=== PATIENT | male | born 1955 | race Hispanic/Latino ===

== ENCOUNTER 2018-08-16 16:59 | Emergency (ER) | payer MEDICAID, OTHER ==
[~2018-08-16] VITALS: Ht 170.2 cm; Wt 74.8 kg
--- NOTE | 2018-08-16 17:00 | NUR ---
ARRIVAL PATIENT TO ROOM 1 VIA EMS, EMS STATES THAT THE PATIENT WAS SEIZING FOR ABOUT 30 MINS PRIOR TO THEIR ARRIVAL REPORTED BY INTERMEDIATE STAFF, PATIENT SHOWED ACTIVE SEIZING UPON ARRIVAL. REPORT GIVEN TO THIS NURSE GCS OF 6, PATIENT NOT INTUBATED, PATIENT ON A NON REBREATHER AT 15L. PATIENT AIRWAY BEING BLOCKED BY TONGUE, EMS STATES THEY GAVE 7.5 VERSED IH. NO IV ACCESS AT THIS TIME.
--- NOTE | 2018-08-16 17:04 | NUR ---
INTUBATION SUCCESSFUL ATTEMPT 24 @ THE [facility]
--- NOTE | 2018-08-16 17:10 | NUR ---
STACY CALLED AND CHECKED THE STATUS OF LIFESTAR TO FLY
--- NOTE | 2018-08-16 17:15 | ER.PDOC ---
General Chief Complaint: Requesting Medical Care Stated Complaint: CP TRAVEL OUT OF US: No Time seen by MD: 17:00 Source: EMS, EMS notes reviewed, half-way records Exam Limitations: physical impairment, other History of Present Illness Initial Comments 62 y/o male patient arrives active left focal sz x1 hr, patient is a half-way patient with known sz disorder no other hx known. Timing/Duration: unsure Severity: severe Modifying Factors: improves with other Associated Symptoms: other Past Medical History Medical History: other Surgical History: other Social History Smoking: non-smoker Drug Use: none Reviewed Nursing Reviewed: Vital Signs, Abn. Noted, Nursing Assessment Review of Systems Constitutional: see HPI EENTM: see HPI Respiratory: see HPI Cardiovascular: see HPI Gastrointestinal: see HPI Genitourinary: see HPI Musculoskeletal: see HPI Skin: see HPI Psychiatric/Neurological: see HPI, seizure Hematologic/Lymphatic: see HPI Immunological/Allergic: see HPI Physical Exam General Appearance: Severe Distress, Other EENT: pharynx nml, other Neck: Non-Tender Respiratory: chest non-tender CVS: reg rate & rhythm, no murmur, no gallop, pulses nml Gastrointestinal: Normal Bowel Sounds Extremities: Normal Range of Motion, Normal Inspection Neurologic/Psychiatric: Other Skin: Normal Color Lymphatic: No Adenopathy Comments ACTIVE LEFT FOCAL SZ., PATIENT UNRESPONSIVE , GCS 6, PATIENT RSI ETOMIDATE AND ROCURONIUM INTUBATED WITH 7.5 EET. Results/Orders Results/Orders Orders - ZOEY SEYMOUR DO Xr Chest 1v (08/16/18 17:13) Ct Head Wo Contrast (08/16/18 17:15) Cbc With Auto Diff (08/16/18 17:15) Comprehensive Metabolic Panel (08/16/18 17:15) Alcohol(Ml) (08/16/18 17:15) Valproate (08/16/18 17:15) Urinalysis (08/16/18 17:15) Troponin I (08/16/18 17:15) Creatine Kinase Mb (08/16/18 17:15) Creatine Kinase (08/16/18 17:15) Magnesium (08/16/18 17:15) Dilantin (08/16/18 17:15) Lorazepam (Ativan) (08/16/18 17:59) Vital Signs Date Time Temp Pulse Resp B/P (MAP) Pulse Ox O2 Delivery O2 Flow Rate FiO2 08/16/18 17:34 99.6 129 18 225/139 (167) 98 Mechanical Ventilator 99.6 08/16/18 17:00 99.6 129 18 99.6 08/16/18 17:00 99.7 129 18 98 Mechanical Ventilator 99.7 Laboratory Tests Test 08/16/18 17:22 08/16/18 17:50 Urine Collection Type CATH Urine Color YELLOW (YELLOW) Urine Appearance CLEAR (CLEAR) Urine Bilirubin NEGATIVE MG/DL (NEGATIVE) Urine Ketones NEGATIVE (NEGATIVE) Urine Specific [place] 1.010 (1.005-1.035) Urine pH 7 (5.0-6.0) Urine Protein NEGATIVE (NEGATIVE) Urine Urobilinogen NORMAL (NEGATIVE) Urine Nitrate NEGATIVE (NEGATAIVE) Urine Leukocyte Esterase NEGATIVE (NEGATIVE) Urine Blood NEGATIVE (NEGATIVE) Urine Glucose NORMAL (NEGATIVE) White Blood Count 11.7 10^3/uL (4.5-11.0) H Red Blood Count 4.45 10^6/uL (4.50-5.90) L Hemoglobin 15.2 g/dL (13.9-16.3) Hematocrit 44.6 % (37.0-53.0) Mean Corpuscular Volume 100.2 fL (78-100) H Mean Corpuscular Hemoglobin 34.2 pg (26-34) H Mean Corpuscular Hemoglobin Concent 34.1 g/dL (33-37) Red Cell Distribution Width 13.6 % (11.5-14.5) Platelet Count 200 10^3/uL (150-400) Mean Platelet Volume 10.3 fL (7.8-11.0) Neutrophils (%) (Auto) 61.1 % (41.0-85.0) Lymphocytes (%) (Auto) 30.5 % (24.0-44.0) Monocytes (%) (Auto) 6.8 % (5.0-12.0) Neutrophils # (Auto) 7.2 10^3/uL (1.8-7.7) Lymphocytes # (Auto) 3.6 10^3/uL (1.0-4.8) Monocytes # (Auto) 0.8 10^3/uL (0.3-0.8) Absolute Immature Granulocyte (auto 0.06 10^3 u/L (0-2) Eosinophils % 0.9 % (0.0-5.0) Basophils % 0.2 % (0.0-0.2) Basophils # 0.0 10^3/uL (0.0-0.1) Eosinophil Count 0.1 10^3/uL (0.0-0.2) Percent Immature Gran (Cell Imm) 0.50 % (0.00-0.50) Consult/PCP Time Consult/PCP Called: 18:10 Consult/PCP: [facility], AIR [facility]. Departure Time of Disposition: 18:13 Disposition: 70 DISC/XFER TO ANOTH TYP [facility] Impression: Primary Impression: Status epilepticus due to complex partial seizure Additional Impressions: Seizure disorder Airway compromise Condition: Critical If Transfer, List PT Destinati: [facility] Referrals: PCP,UNKNOWN (PCP) PRIMARY CARE PROVIDER Duration or Time Spent with Pa: 40 MIN Critical Care Note Total Time (mins): 30 Comments RSI TO PROTECT AIRWAY, LABS PENDING, LEVELS DEPAKOTE AND DILANTIN PENDING. ZOEY SEYMOUR DO Aug 16, 2018 17:15
--- NOTE | 2018-08-16 17:17 | NUR ---
CT PATIENT TO CT
[2018-08-16 17:27] LABS: BILIRUBIN,URINE NEGATIVE (NEGATIVE); UROBILINOGEN,URINE NORMAL (NEGATIVE)
[2018-08-16 17:28] LABS: APPEARANCE,URINE CLEAR (CLEAR); UA COLOR YELLOW (YELLOW)
[2018-08-16 17:34] VITALS: BP 225/139
--- NOTE | 2018-08-16 17:36 | DIREP ---
PROCEDURE:CHEST 1 VIEW COMPARISON:None. INDICATIONS:ET tube placement FINDINGS: LUNGS/PLEURA:Slightly increased density in the medial left retrocardiac region. Question medial left lower lobe infiltrate or atelectasis. VASCULATURE:Normal. Unremarkable pulmonary vasculature. CARDIAC:Normal. No cardiac silhouette abnormality or cardiomegaly. MEDIASTINUM:Normal. No visible mass or adenopathy. BONES:Normal. No fracture or visible bony lesion. OTHER:Endotracheal tube appears in satisfactory position. CONCLUSION: 1. Slightly increased density in the medial left retrocardiac region. Question medial left lower lobe infiltrate or atelectasis. Dictated by: Dominick Whalen MD on 08/16/2018 at 05:35 PM
--- NOTE | 2018-08-16 17:48 | NUR ---
PROPOFOL DRIP 20MCG/KG/MIN
--- NOTE | 2018-08-16 17:50 | NUR ---
CT PATIENT BACK FROM CT.
--- NOTE | 2018-08-16 17:54 | DIREP ---
PROCEDURE:CT HEAD OR BRAIN W/O CONTRAST COMPARISON:None. INDICATIONS:sz activity TECHNIQUE:CT images were created without intravenous contrast. FINDINGS: VENTRICLES:There is mild prominence of the ventricles and cortical sulci consistent with age related involutional changes. CEREBRUM:Right frontal , right parietal, and right posterior temporal encephalomalacia consistent with the sequela of prior infarct. No acute hemorrhages or infarcts are seen. CEREBELLUM:Negative. BRAINSTEM:Negative. BASAL CISTERNS:Negative. HEMORRHAGE:No MASS LESION:No ACUTE INFARCT:No SKULL:Normal. SINUSES:Polyp or mucous retention cyst in the inferior right maxillary sinus. OTHER:None CONCLUSION: 1. Right frontal, parietal, and posterior right temporal encephalomalacia consistent with the sequela of prior infarcts. 2. No acute findings. Dictated by: Dominick Whalen MD on 08/16/2018 at 05:51 PM
--- NOTE | 2018-08-16 17:57 | NUR ---
[facility] AUTO ACCEPTED PATIENT, DOCTOR DIES ACCEPTING PHYSICIAN AND SHER OQUENDO
[2018-08-16] MEDS ORDERED: ATIVAN IV STA ×2 (17:59→18:27)
[2018-08-16 18:00] VITALS: BP 174/97
[2018-08-16 18:00] LABS: BASOPHIL % 0.2 % (0.0-0.2); EOSINOPHIL # 0.1 10^3/uL (0.0-0.2); EOSINOPHIL % 0.9 % (0.0-5.0); HEMOGLOBIN 15.2 g/dL (13.9-16.3); LYMPHOCYTES # 3.6 10^3/uL (1.0-4.8); LYMPHOCYTES % 30.5 % (24.0-44.0); MEAN CELL HGB 34.2 pg (26-34); MEAN CELL HGB CONCENTRATION 34.1 g/dL (33-37); MEAN CORP VOLUME 100.2 fL (78-100); MEAN PLATELET VOLUME 10.3 fL (7.8-11.0); MONOCYTES # 0.8 10^3/uL (0.3-0.8); MONOCYTES % 6.8 % (5.0-12.0); NEUTROPHIL # 7.2 10^3/uL (1.8-7.7); NEUTROPHILS % 61.1 % (41.0-85.0); RED CELL DISTRIBUTION WIDTH 13.6 % (11.5-14.5); WHITE BLOOD CELL 11.7 10^3/uL (4.5-11.0)
--- NOTE | 2018-08-16 18:07 | NUR ---
[facility] L[facility] HERE FOR TRANSFER
--- NOTE | 2018-08-16 18:20 | NUR ---
REPORT CALLED TO DONALD OMALLEY
[2018-08-16] MEDS ORDERED: AMIDATE IV STA (18:23)
[2018-08-16 18:27] LABS: ALKALINE PHOSPHATASE 78 U/L (50-136); ASPARTATE AMINO TRANSFERASE 27 U/L (0-35); CARBON DIOXIDE 19.9 mmol/L (20.0-32)
[2018-08-16] MEDS ORDERED: ZEMURON IV ONE ×2 (18:30)
[2018-08-16 18:36] VITALS: BP 178/102
[2018-08-16 18:39] VITALS: BP 178/102
[2018-08-16 18:41] LABS: ALANINE AMINOTRANSFERASE(ML) 22 U/L (12-78); GLUCOSE 111 mg/dL (70-110)
[2018-08-17] MEDS ORDERED: DIPRIVAN IV PRN (11:30)
== END 2018-08-16 18:07 | disposition other institution (70) ==
LOC: ER 16:59
DX: G40.211 Localization-related (focal) (partial) symptomatic epilepsy and epileptic syndromes with complex partial seizures, intractable, with status epilepticus (principal); J98.8 Other specified respiratory disorders
CPT/HCPCS: 31500; 36415; 70450; 71045; 80053; 80164; 80185; 80307; 81002; 82550; 82553; 83735; 84484; 85025; 96374; 99291; J3490

== ENCOUNTER → 2019-11-17 | Outpatient (CLI) | payer OTHER | END | disposition home or self-care (01) | LOC: LAB 11:59 | PROVIDERS: ATTEND Internal Medicine | DX: R84.2 Abnormal level of other drugs, medicaments and biological substances in specimens from respiratory organs and thorax (principal); R89.2 Abnormal level of other drugs, medicaments and biological substances in specimens from other organs, systems and tissues | CPT/HCPCS: 36415; 80185 ==